=== PATIENT | male | born 1945 | race Caucasian/White ===

== ENCOUNTER 2016-07-16 19:04 | Inpatient (IN) | payer MEDICARE, OTHER ==
[~2016-07-16] VITALS: Ht 185.4 cm; Wt 95.5 kg
[~2016-07-16 19:04] MED LIST: ALTACE 2.5MG T2.5 MG PO; ASPIR-LOW81 MG PO; ASPIR-LOX325 MG PO; ASPIRIN E.C. 8181 MG PO; FISH OIL1 IU PO; LEVAQUIN 750MG750 MG PO; PRILOSEC 20MG20 MG PO; ZOCOR 20MG20 MG PO; ZOFRAN4 M1 PO; ZOLPIDEM5 MG PO
[2016-07-16 19:29] LABS: MEAN CELL VOLUME 85 fl (80.0-100.0); MEAN CORPUSCULAR HGB CONC 32 g/dl (33.0-37.0); MEAN PLATELET VOLUME 9.2 fl (7.4-10.4); PLATELET COUNT 250 K/mm3 (130-400); RED BLOOD COUNT 4.27 M/mm3 (4.20-5.60); REDCELL DISTRIBUTION WIDTH-CV 15.2 % (11.5-14.5)
[2016-07-16 19:37] LABS: HEMATOCRIT 36.4 % (42.0-52.0); HEMOGLOBIN 11.7 g/dl (13.5-18.0); MEAN CORPUSCULAR HEMOGLOBIN 27 pg (27.0-31.0); WHITE BLOOD COUNT 24.8 K/mm3 (4.8-10.8)
[2016-07-16 19:38] LABS: ADD PATHOLOGY DIFF REVIEW NO
[2016-07-16 19:47] LABS: ADJUSTED CALCIUM 8.7 mg/dL (8.4-10.2); ALBUMIN 4.1 gm/dL (3.5-5.0); BILIRUBIN,TOTAL 0.8 mg/dL (0.0-1.0); CALCIUM 8.8 mg/dL (8.4-10.2); CREATININE, serum 1.14 mg/dL (0.66-1.25); POTASSIUM 3.8 mmol/L (3.4-5.0); TOTAL PROTEIN 7.4 gm/dL (6.4-8.2)
[2016-07-16 20:01] LABS: BAND 10 % (0-10); EOSINOPHIL 2 % (0-4); MICROCYTOSIS 1+; NEUTROPHILS 67 % (42.0-75.2); PLATELET ESTIMATE NORMAL (NORMAL); TOTAL CELLS COUNTED 100
[2016-07-16 20:31] LABS: PH 6 (5-8); SQUAMOUS EPITHELIAL None Seen /hpf; URINE APPEARANCE Clear; URINE BACTERIA None Seen /hpf; URINE BILIRUBIN Negative (NEGATIVE); URINE BLOOD Negative (NEGATIVE); URINE COLOR Yellow; URINE GLUCOSE Negative (NEGATIVE); URINE KETONE Negative (NEGATIVE); URINE UROBILINOGEN Negative (NEGATIVE)
[2016-07-16] MEDS ORDERED: VITAMIN D31000 I1 PO (21:16)
[2016-07-16] MEDS ORDERED: GLUCOPHAGE XR500 M1 PO (21:17)
[2016-07-16] MEDS ORDERED: CEPHALEXIN500 M1 PO (21:17)
[2016-07-16 22:00] VITALS: BP 118/71; PULSE 75; TEMP 98.8
[2016-07-17] VITALS (8 sets, daily range): BP systolic 98–119; BP diastolic 52–63; PULSE 76–120; TEMP 98.5–100.9
[2016-07-17 08:08] LABS: CREATININE, serum 1.08 mg/dL (0.66-1.25)
[2016-07-18] VITALS (8 sets, daily range): BP systolic 107–127; BP diastolic 56–72; PULSE 71–84; TEMP 98.5–100
[2016-07-18 12:05] LABS: BASO # 0.1 (0.0-0.2); BASO % 0.4 % (0.0-2.0); EOS # 0.2 (0.0-0.7); EOS % 1.5 % (0-4.0); GRAN # 10.3 (1.4-6.5); GRAN % 74.6 % (42.2-75.2); LYMPH # 1.9 (1.2-3.4); LYMPH % 14.1 % (20.0-51.0); MEAN CELL VOLUME 88 fl (80.0-100.0); MEAN CORPUSCULAR HGB CONC 31 g/dl (33.0-37.0); MEAN PLATELET VOLUME 9.3 fl (7.4-10.4); MONO # 1.2 (0.1-0.6); PLATELET COUNT 207 K/mm3 (130-400); RED BLOOD COUNT 3.72 M/mm3 (4.20-5.60); REDCELL DISTRIBUTION WIDTH-CV 15.8 % (11.5-14.5); WHITE BLOOD COUNT 13.8 K/mm3 (4.8-10.8)
[2016-07-18 12:07] LABS: HEMATOCRIT 32.8 % (42.0-52.0); HEMOGLOBIN 10.2 g/dl (13.5-18.0); MEAN CORPUSCULAR HEMOGLOBIN 27 pg (27.0-31.0)
[2016-07-18 12:40] LABS: ADJUSTED CALCIUM 8.8 mg/dL (8.4-10.2); ALBUMIN 3.4 gm/dL (3.5-5.0); BILIRUBIN,TOTAL 0.6 mg/dL (0.0-1.0); CALCIUM 8.3 mg/dL (8.4-10.2); CREATININE, serum 1.02 mg/dL (0.66-1.25); POTASSIUM 3.9 mmol/L (3.4-5.0); TOTAL PROTEIN 6.4 gm/dL (6.4-8.2)
[2016-07-19 03:49] VITALS: BP 137/86; PULSE 68; TEMP 98.7
[2016-07-19 08:00] VITALS: BP 123/83; PULSE 68; TEMP 98.5
[2016-07-19 11:57] VITALS: BP 111/73; PULSE 72; TEMP 98.5
[2016-07-19 15:24] VITALS: BP 127/69; PULSE 77; TEMP 98.7
[2016-07-19 20:40] VITALS: BP 126/83; PULSE 71; TEMP 98.3
[2016-07-19 23:44] VITALS: BP 115/72; PULSE 68; TEMP 98.3
[2016-07-20 03:24] VITALS: BP 109/66; PULSE 67; TEMP 98.3
[2016-07-20 07:47] VITALS: BP 119/66; PULSE 71; TEMP 97.8
[2016-07-20] MEDS ORDERED: FLOMAX 0.40.4 MG/CAP PO (11:16)
[2016-07-20] MEDS ORDERED: AMOXICILLIN 8751 TAB PO (11:16)
== END 2016-07-20 13:06 | disposition home or self-care (01) | DRG 871 ==
LOC: COL.ER 19:04 → MEDICAL 20:50
PROVIDERS: Emergency Medicine; Family Medicine; Internal Medicine
DX: A41.81 Sepsis due to Enterococcus (principal); R65.21 Severe sepsis with septic shock; N41.0 Acute prostatitis; N39.0 Urinary tract infection, site not specified; I10 Essential (primary) hypertension; E11.9 Type 2 diabetes mellitus without complications; B95.2 Enterococcus as the cause of diseases classified elsewhere
CPT/HCPCS: 99222-AI; 99232-AI; 99233-AI; 99239; G0103; J0744; J1650; J1885; J2185; J2405; J7030